=== PATIENT | female | born 1945 | race African-American/Black ===

== ENCOUNTER 2021-08-15 07:13 | Emergency (ER) | payer MEDICARE, OTHER ==
[~2021-08-15] VITALS: Ht 165.1 cm; Wt 75.0 kg
[2021-08-15] MEDS ORDERED: DIAZEPAM 5 MG TABLET PO ONE (08:00)
[2021-08-15] MEDS ORDERED: DIAZ2TAB MT ×2 (09:15→09:17)
[2021-08-15 10:21] VITALS: BP 162/73
== END 2021-08-15 10:22 | disposition home or self-care (01) ==
LOC: ER 07:13
DX: M54.50 Low back pain, unspecified (principal); I10 Essential (primary) hypertension
CPT/HCPCS: 72070; 72100; 99284